=== PATIENT | female | born 1975 | race Caucasian/White ===

== ENCOUNTER 2017-03-03 14:09 | Emergency (ER) ==
[2017-03-03 14:14] VITALS: BP 113/80; TEMP 98; BMI 41.5
[2017-03-03] MEDS ORDERED: MORPHINE 4 MG/ML SYRINGE IVP STA ×2 (14:59→16:33)
[2017-03-03] MEDS ORDERED: SODIUM CHLORIDE 1,000 ML IV STA (15:00)
[2017-03-03] MEDS ORDERED: ZOFRAN 4 MG/2 ML IVP STA (15:00)
[2017-03-03 15:08] LABS: BASOPHILS # (AUTO) 0.1 K/uL (0-0.2); BASOPHILS % (AUTO) 0.4 % (0.0-3.0); EOSINOPHILS # (AUTO) 0.1 K/ul (0.0-0.7); EOSINOPHILS % (AUTO) 0.7 % (0.0-7.0); HEMATOCRIT 42.4 % (37.0-47.0); HEMOGLOBIN 14.5 g/dl (12.0-16.0); IMMATURE GRANULOCYTE % (AUTO) 0.3 % (0.0-5.0); LYMPHOCYTES # (AUTO) 2.1 K/uL (0.60-3.4); LYMPHOCYTES % (AUTO) 18.5 (10.0-50.0); MEAN CORPUSCULAR HEMOGLOBIN 33.5 pg (27.0-31.0); MEAN CORPUSCULAR HGB CONC 34.2 (31.8-35.4); MEAN CORPUSCULAR VOLUME 97.9 fl (81.0-99.0); MONOCYTES # (AUTO) 0.6 K/uL (0.4-2.0); MONOCYTES % (AUTO) 5.5 (0-10); NEUTROPHILS # (AUTO) 8.5 K/ul (2.0-6.9); NEUTROPHILS % (AUTO) 74.6; PLATELET COUNT 234 10^3/uL (140-440); RED BLOOD COUNT 4.33 10^6/ul (4.20-5.40); WHITE BLOOD COUNT 11.43 K/ul (4.6-10.2)
[2017-03-03 15:24] LABS: ALBUMIN 4.4 g/dL (3.4-5.0); ALBUMIN/GLOBULIN RATIO 0.94; ANION GAP 16.1; BILIRUBIN,TOTAL 0.47 mg/dL (0.00-1.20); BUN/CREATININE RATIO 8.88; CALCIUM 10.1 mg/dL (8.2-10.2); CREATININE 1.35 mg/dL (0.60-1.30); POTASSIUM 4.1 mmol/L (3.5-5.10); TOTAL PROTEIN 9.1 g/dL (6.4-8.2)
--- NOTE | 2017-03-03 15:36 | CT ---
EXAM: CT Abdomen without contrast. CT Pelvis without contrast. HISTORY: Nausea, vomiting, diarrhea. Abdominal pain. COMPARISON: 03/31/2015. TECHNIQUE: Multiple axial images of the abdomen and pelvis were obtained without intravenous contra st. Images were reformatted in the coronal plane. FINDINGS: Please note that evaluation of the abdominal and pelvic structures is limited due to lack of intravenous contrast. Mild subsegmental atelectasis seen in the lung bases. No acute osseous abnormality identified. Gallbladder is absent. Mild pneumobilia noted. The liver, pancreas, spleen, adrenal glands, and ki dneys demonstrate normal contour. No calcified renal stones or hydronephrosis detected. There is mild fluid distension of some small bowel loops. No fran bowel wall thickening or transit ion point identified. There is mild mesenteric edema and a small amount of free pelvic fluid. [place] n is normal in caliber. Appendix not seen. Uterus is absent. Urinary bladder is unremarkable. In ferior vena cava filter noted. IMPRESSION: Enteritis.
[2017-03-03 16:11] LABS: FLU INTERNAL QC INTERNAL QC VALID; RAPID FLU A NEGATIVE (NEGATIVE); RAPID FLU B NEGATIVE (NEGATIVE)
[2017-03-03] MEDS ORDERED: LOMOTIL PO STA (16:27)
--- NOTE | 2017-03-03 16:29 | ED.PDOC ---
General ED Provider: Dr. LESA GUAJARDO Chief Complaint: Nausea/Vomiting Stated Complaint: n/v/d Time Seen by Physician: 14:15 (seen with staff ) Mode of Arrival: Walk-In Information Source: Patient Exam Limitations: No limitations Primary Care Provider: JAMSHID MEHTA Nursing and Triage Documentation Reviewed and Agree: Yes GI Complaint Exam - Abdominal Pain Complaint/Exam Onset: Gradual Symptoms Are: Resolved Timing: Intermittent Initial Severity: Moderate Current Severity: Moderate Location of Pain: Diffuse Character: Reports: Cramping Aggravating: Reports: None Alleviating: Reports: None Associated Signs and Symptoms: Reports: Nausea, Vomiting. Denies: Diaphoresis, Fever, Cough, Chest pain, Dizziness, Back pain, Constipation, Blood in stool, Dysuria, Urinary frequency, Decreased urine output, Decreased appetite, Vaginal bleeding, Vaginal discharge, Sore throat, Decreased activity AAA Risk Factors: Reports: None Cardiac Risk Factors: Reports: None Ectopic Risk Factors: Reports: None Ovarian Torsion Risk Factors: Reports: None Related Surgical History: Reports: None Patient Rh Status: Unknown Abdominal Findings: Present: None Review of Systems - Review Of Systems Constitutional: Reports: No symptoms Eyes: Reports: No symptoms Ears, Nose, Mouth, Throat: Reports: No symptoms Respiratory: Reports: No symptoms Cardiac: Reports: No symptoms GI: Reports: Diarrhea, Vomiting : Reports: No symptoms Musculoskeletal: Reports: No symptoms Skin: Reports: No symptoms Neurological: Reports: No symptoms Endocrine: Reports: No symptoms Hematologic/Lymphatic: Reports: No symptoms All Other Systems: Reviewed and Negative Past Medical History - Past Medical History Previously Healthy: Yes Endocrine: Reports: None Cardiovascular: Reports: None Respiratory: Reports: None Hematological: Reports: Anemia Gastrointestinal: Reports: GERD Genitourinary: Reports: None Neuro/Psych: Reports: Anxiety, Depression, Bipolar Disorder Musculoskeletal: Reports: None Cancer: Reports: None Last Menstrual Period: n/a Other Pertinent Past Medical History: chronic Pancreatitis, - Surgical History General Surgical History: Reports: Hysterectomy, Cholecystectomy, Tonsillectomy - Family History Family History: Reports: None - Social History Smoking Status: Current every day smoker, Heavy tobacco smoker Hx Substance Use: No Alcohol Screening: None Physical Exam - Physical Exam Appearance: Well-appearing, No pain distress, Well-nourished Eyes: LEANNE, EOMI, Conjunctiva clear ENT: Ears normal, Nose normal, Oropharynx normal Respiratory: Airway patent, Breath sounds clear, Breath sounds equal, Respirations nonlabored Cardiovascular: RRR, Pulses normal, No rub, No murmur GI/: Soft, Nontender, No masses, Bowel sounds normal, No Organomegaly Musculoskeletal: Normal strength, ROM intact, No edema, No calf tenderness Skin: Warm, Dry, Normal color Neurological: Sensation intact, Motor intact, Reflexes intact, Cranial nerves intact, Alert, Oriented Psychiatric: Affect appropriate, Mood appropriate Interpretation - Radiology Interpretation Radiology Interpretation By: Radiologist Radiology Results: Positive (enteritis) Critical Care Note - Critical Care Note Total Time (mins): 0 Course - Course Hematology/Chemistry: 03/03/17 15:00 03/03/17 15:00 Orders, Labs, Meds: Lab Review 03/03/17 03/03/17 15:00 15:30 WBC 11.43 H RBC 4.33 Hgb 14.5 Hct 42.4 MCV 97.9 MCH 33.5 H MCHC 34.2 RDW Coeff of [place]y 15.0 H Plt Count 234 Immature Gran % (Auto) 0.3 Neut % (Auto) 74.6 Lymph % (Auto) 18.5 [place] % (Auto) 5.5 Eos % (Auto) 0.7 Baso % (Auto) 0.4 Immature Gran # (Auto) 0.0 Neut # 8.5 H Lymph # 2.1 [place] # 0.6 Eos # 0.1 Baso # 0.1 Sodium 140 Potassium 4.1 Chloride 105 Carbon Dioxide 23 Anion Gap 16.1 BUN 12 Creatinine 1.35 H Estimated GFR (MDRD) 44.00 BUN/Creatinine Ratio 8.88 Glucose 91 Calcium 10.1 Total Bilirubin 0.47 AST 37 ALT 33 Alkaline Phosphatase 81 Total Protein 9.1 H Albumin 4.4 Globulin 4.7 Albumin/Globulin Ratio 0.94 Amylase 42 Lipase 23 Influenza A (Rapid) Negative Influenza B (Rapid) Negative Orders Category Date Time Status AMYLASE Stat LAB 03/03/17 15:00 Completed CBC W/ AUTO DIFF Stat LAB 03/03/17 15:00 Completed COMPREHENSIVE METABOLIC PANEL Stat LAB 03/03/17 15:00 Completed LIPASE Stat LAB 03/03/17 15:00 Completed RAPID FLU A/B Stat LAB 03/03/17 15:30 Completed Morphine Sulfate [Morphine 4 mg/ml Syringe] MEDS 03/03/17 14:59 Discontinued 2 mg IVP ONCE STA Ondansetron HCl/Pf [Zofran 4 mg/2 ml] MEDS 03/03/17 15:00 Discontinued 4 mg IVP ONCE STA Sodium Chloride 0.9% [Sodium Chloride] 1,000 ml MEDS 03/03/17 15:[address] ABDOMEN/PELVIS WO CONTRAST Stat RADS 03/03/17 15:00 Completed Medications Discontinued Medications Generic Name Dose Route Start Last Admin Trade Name Freq PRN Reason Stop Dose Admin Sodium Chloride 1,000 mls @ 1,000 mls/hr 03/03/17 15:00 03/03/17 15:22 Sodium Chloride IV 03/03/17 15:59 1,000 mls/hr BOLUS STA Administration Morphine Sulfate 2 mg 03/03/17 14:59 03/03/17 15:24 Morphine 4 Mg/Ml Syringe IVP 03/03/17 15:00 2 mg ONCE STA Administration Ondansetron HCl 4 mg 03/03/17 15:00 03/03/17 15:22 Zofran 4 Mg/2 Ml IVP 03/03/17 15:01 4 mg ONCE STA Administration Vital Signs: Temp Pulse Resp BP Pulse Ox 03/03/17 14:10 98.0 F 100 H 16 113/80 95 Departure - Departure Time of Disposition: 16:30 Disposition: HOME SELF-CARE Discharge Problem: Nausea, Vomiting, Acute gastroenteritis Instructions: Gastroenteritis (ED) Condition: Good Pt referred to PMD for follow-up: No Additional Instructions: Please call your Family Physician as soon as possible to schedule a follow-up appointment. Allergies/Adverse Reactions: Allergies No Known Allergies Allergy (Verified 03/03/17 14:14) Home Medications: Ambulatory Orders Gabapentin [Neurontin] 800 mg PO TID 10/19/14 Omeprazole [Prilosec] 20 mg PO QDAC 10/19/14 Pravastatin Sodium [Pravachol] 20 mg PO BEDTIME 10/19/14 Venlafaxine HCl [Effexor Xr] 150 mg PO BEDTIME 04/17/15 Levothyroxine Sodium [Synthroid] 125 mcg PO DAILY 11/25/15 Hydrocodone/Acetaminophen [Lortab 5-325 mg Tablet] 1 each PO TID PRN 03/03/17
== END 2017-03-03 17:30 | disposition home or self-care (01) ==
LOC: ED 14:09
DX: K52.9 Noninfective gastroenteritis and colitis, unspecified (principal); F17.210 Nicotine dependence, cigarettes, uncomplicated
CPT/HCPCS: 36415; 80053; 82150; 83690; 85025; 87804; 96374; 96375; 96376; 99283

== ENCOUNTER 2017-03-14 19:17 | Emergency (ER) ==
[2017-03-14 19:17] VITALS: BMI 41.5
[2017-03-14 19:22] VITALS: BP 136/85; TEMP 97.6
--- NOTE | 2017-03-14 19:41 | ED.PDOC ---
General ED Provider: Dr. NICOLE YANG-ER Chief Complaint: Extremity Pain/Injury Stated Complaint: i fell onto door way--i have bruise on my arm Time Seen by Physician: 19:20 Mode of Arrival: Walk-In Information Source: Patient Exam Limitations: No limitations Primary Care Provider: JAMSHID MEHTA Nursing and Triage Documentation Reviewed and Agree: Yes Musculoskeletal Complaint Exam - Hand/Wrist Complaint/Exam Location of Pain: Reports: Right, Wrist Mechanism of Injury: Reports: Trauma Onset/Duration: today Onset of Pain: Reports: Immediate Initial Severity: Mild Current Severity: Moderate Location: Reports: Discrete (right forearm) Character: Reports: Dull, Aching Alleviating: Reports: Rest Aggravating: Reports: Movement Associated Signs and Symptoms: Reports: Swelling, Bruising. Denies: Redness, Fever, Weakness, Numbness, Tingling Dominant Hand: Right Hand/Wrist Findings: Present: Swelling, Ecchymosis Tenderness: Present: Radius, Ulna Compartment Syndrome Risk Factors: Present: Pain. Absent: Paralysis, Pallor, Pulselessness, Paresthesias Differential Diagnoses: Closed Fracture, Bursitis, Tenosynovitis Review of Systems - Review Of Systems Constitutional: Reports: No symptoms Eyes: Reports: No symptoms Ears, Nose, Mouth, Throat: Reports: No symptoms Respiratory: Reports: No symptoms Cardiac: Reports: No symptoms GI: Reports: No symptoms : Reports: No symptoms Musculoskeletal: Reports: Muscle pain Skin: Reports: No symptoms Neurological: Reports: No symptoms Endocrine: Reports: No symptoms Hematologic/Lymphatic: Reports: No symptoms All Other Systems: Reviewed and Negative Past Medical History - Past Medical History Previously Healthy: Yes Endocrine: Reports: None Cardiovascular: Reports: None Respiratory: Reports: None Hematological: Reports: Anemia Gastrointestinal: Reports: GERD Genitourinary: Reports: None Neuro/Psych: Reports: Anxiety, Depression, Bipolar Disorder Musculoskeletal: Reports: None Cancer: Reports: None Last Menstrual Period: NA Other Pertinent Past Medical History: chronic Pancreatitis, - Surgical History General Surgical History: Reports: Hysterectomy, Cholecystectomy, Tonsillectomy - Family History Family History: Reports: None - Social History Smoking Status: Current every day smoker, Heavy tobacco smoker Hx Substance Use: No Alcohol Screening: None Lives: With family - Immunizations Tetanus Shot up to Date: No Physical Exam - Physical Exam Appearance: Well-appearing, No pain distress, Well-nourished Pain Distress: Moderate Eyes: LEANNE, EOMI, Conjunctiva clear ENT: Ears normal, Nose normal, Oropharynx normal Neck: Supple Respiratory: Airway patent, Breath sounds clear, Breath sounds equal, Respirations nonlabored Cardiovascular: RRR, Pulses normal, No rub, No murmur GI/: Soft, Nontender, No masses, Bowel sounds normal, No Organomegaly Musculoskeletal: Limited ROM Skin: Warm, Dry, Normal color Neurological: Sensation intact, Motor intact, Reflexes intact, Cranial nerves intact, Alert, Oriented Psychiatric: Affect appropriate, Mood appropriate Interpretation - Radiology Interpretation Radiology Interpretation By: ED Physician Radiology Results: Negative Critical Care Note - Critical Care Note Total Time (mins): 0 Course - Course Orders, Labs, Meds: Orders Category Date Time Status Ice Pack [ED APPLY ICE AFFECTED AREA] .ONCE EMERGENCY 03/14/17 19:27 Active WRIST, RIGHT 3 VIEWS Stat RADS 03/14/17 19:27 Taken Vital Signs: Temp Pulse Resp BP Pulse Ox 03/14/17 19:18 97.6 F 76 16 136/85 98 Departure - Departure Time of Disposition: 19:44 Disposition: HOME SELF-CARE Discharge Problem: Contusion Qualifiers: Encounter type: initial encounter Contusion area: forearm Laterality: right Qualifier Code: (S50.11XA) Contusion of right forearm, initial encounter Instructions: Contusion in Adults (ED) Condition: Good Pt referred to PMD for follow-up: Yes Additional Instructions: norco 5mg q 4hrs prn [place] #15---ice and elevation--reheck in 72hrs if not better Allergies/Adverse Reactions: Allergies No Known Allergies Allergy (Verified 03/14/17 19:24) Home Medications: Ambulatory Orders Gabapentin [Neurontin] 800 mg PO TID 10/19/14 Omeprazole [Prilosec] 20 mg PO QDAC 10/19/14 Venlafaxine HCl [Effexor Xr] 150 mg PO BEDTIME 04/17/15 Levothyroxine Sodium [Synthroid] 125 mcg PO DAILY 11/25/15 Hydrocodone/Acetaminophen [Lortab 5-325 mg Tablet] 1 each PO TID PRN 03/03/17 Disposition Discussed With: Patient
--- NOTE | 2017-03-15 07:19 | DI ---
EXAM: Right wrist three views HISTORY: Injury of the wrist. FINDINGS: Bone and joint structures appear normal. There is no displaced fracture or joint dislocat ion seen. General bone density and soft tissues are within normal limits. IMPRESSION: Findings within normal limits.
== END 2017-03-14 19:48 | disposition home or self-care (01) ==
LOC: ED 19:17
DX: S50.11XA Contusion of right forearm, initial encounter (principal); W19.XXXA Unspecified fall, initial encounter; F17.210 Nicotine dependence, cigarettes, uncomplicated
CPT/HCPCS: 99282

== ENCOUNTER 2017-04-13 22:06 | Emergency (ER) ==
[2017-04-13 22:11] VITALS: BP 116/80; TEMP 98.6; BMI 39.9
--- NOTE | 2017-04-13 23:16 | ED.PDOC ---
General ED Provider: Dr. TIFFANI MAHER Chief Complaint: Extremity Swelling/Pain Stated Complaint: c/o left pain, and knot, she has h/o dvt, she wnats to get checked. nmo leg edema, just started now, Time Seen by Physician: 23:14 Mode of Arrival: Walk-In Information Source: Patient Primary Care Provider: JAMSHID MEHTA Nursing and Triage Documentation Reviewed and Agree: Yes Musculoskeletal Complaint Exam - Lower Extremity Complaint/Exam Location of Pain: Reports: Left, Leg Mechanism of Injury: Reports: No known trauma Symptoms Are: Still present Onset of Pain: Reports: Immediate Initial Severity: Moderate Current Severity: Moderate Location: Reports: Discrete Character: Reports: Aching Alleviating: Reports: Rest Aggravating: Reports: None Able to Bear Weight: Yes Associated Signs and Symptoms: Denies: Swelling, Redness, Bruising, Fever, Weakness, Numbness, Tingling Related History: Reports: Similar episode DVT Risk Factors: Reports: Prior DVT Septic Arthritis Risk Factors: Reports: None Related Surgical History: Reports: None Lower Extremity Findings: Absent: Swelling, Ecchymosis, Abnormal contour NV Bundle Intact Distal to Injury: No Differential Diagnoses: DVT, Strain Review of Systems - Review Of Systems Constitutional: Reports: No symptoms Eyes: Reports: No symptoms Ears, Nose, Mouth, Throat: Reports: No symptoms Respiratory: Reports: No symptoms Cardiac: Reports: No symptoms GI: Reports: No symptoms : Reports: No symptoms Musculoskeletal: Reports: Muscle pain, Muscle stiffness Skin: Reports: No symptoms Neurological: Reports: No symptoms Endocrine: Reports: No symptoms Hematologic/Lymphatic: Reports: No symptoms All Other Systems: Reviewed and Negative Past Medical History - Past Medical History Previously Healthy: Yes Endocrine: Reports: None Cardiovascular: Reports: None Respiratory: Reports: None Hematological: Reports: Anemia Gastrointestinal: Reports: GERD Genitourinary: Reports: None Neuro/Psych: Reports: Anxiety, Depression, Bipolar Disorder Musculoskeletal: Reports: None Cancer: Reports: None Last Menstrual Period: HYSTERECTOMY Other Pertinent Past Medical History: chronic Pancreatitis, - Surgical History General Surgical History: Reports: Hysterectomy, Cholecystectomy, Tonsillectomy - Family History Family History: Reports: None - Social History Smoking Status: Current every day smoker, Heavy tobacco smoker Smoking Cessation Counseling Time: > 3 min - 10 min Hx Substance Use: No Alcohol Screening: None Physical Exam - Physical Exam Appearance: Well-appearing, No pain distress, Well-nourished Eyes: LEANNE, EOMI, Conjunctiva clear ENT: Ears normal, Nose normal, Oropharynx normal Respiratory: Airway patent, Breath sounds clear, Breath sounds equal, Respirations nonlabored Cardiovascular: RRR, Pulses normal, No rub, No murmur GI/: Soft, Nontender, No masses, Bowel sounds normal, No Organomegaly Musculoskeletal: Normal strength, ROM intact, No edema, No calf tenderness Skin: Warm, Dry, Normal color Neurological: Sensation intact, Motor intact, Reflexes intact, Cranial nerves intact, Alert, Oriented Psychiatric: Affect appropriate, Mood appropriate Critical Care Note - Critical Care Note Total Time (mins): 0 Course - Course Hematology/Chemistry: 04/13/17 23:23 04/13/17 23:23 Orders, Labs, Meds: Lab Review 04/13/17 23:23 WBC 10.13 RBC 3.77 L Hgb 12.6 Hct 36.9 L MCV 97.9 MCH 33.4 H MCHC 34.1 RDW Coeff of [place] 14.6 Plt Count 195 Immature Gran % (Auto) 0.4 Neut % (Auto) 50.6 Lymph % (Auto) 40.1 [place] % (Auto) 6.6 Eos % (Auto) 1.5 Baso % (Auto) 0.8 Immature Gran # (Auto) 0.0 Neut # 5.1 Lymph # 4.1 H [place] # 0.7 Eos # 0.2 Baso # 0.1 D-Dimer (Manual) 427.20 Sodium 141 Potassium 3.2 L Chloride 106 Carbon Dioxide 25 Anion Gap 13.2 BUN 15 Creatinine 1.10 Estimated GFR (MDRD) 55.00 BUN/Creatinine Ratio 13.63 Glucose 115 H Calcium 9.9 Total Bilirubin 0.17 AST 23 ALT 21 Alkaline Phosphatase 69 Total Protein 7.8 Albumin 3.9 Globulin 3.9 Albumin/Globulin Ratio 1.00 Orders Category Date Time Status CBC W/ AUTO DIFF Stat LAB 04/13/17 23:23 Completed COMPREHENSIVE METABOLIC PANEL Stat LAB 04/13/17 23:23 Completed D-DIMER Stat LAB 04/13/17 23:23 Completed Potassium Chloride [K-Dur] MEDS 04/13/17 23:50 Discontinued 40 meq PO ONCE STA Medications Discontinued Medications Generic Name Dose Route Start Last Admin Trade Name Freq PRN Reason Stop Dose Admin Potassium Chloride 40 meq 04/13/17 23:50 K-Dur PO 04/13/17 23:51 ONCE STA Vital Signs: Temp Pulse Resp BP Pulse Ox 04/13/17 22:07 98.6 F 85 16 116/80 96 Departure - Departure Time of Disposition: 23:57 Disposition: HOME SELF-CARE Discharge Problem: Pain of left lower extremity Instructions: Leg Pain (ED) Condition: Stable Pt referred to PMD for follow-up: Yes Additional Instructions: venous doppler in am keep f/u with PMD Allergies/Adverse Reactions: Allergies No Known Allergies Allergy (Verified 04/13/17 22:10) Home Medications: Ambulatory Orders Gabapentin [Neurontin] 800 mg PO TID 10/19/14 Omeprazole [Prilosec] 20 mg PO QDAC 10/19/14 Venlafaxine HCl [Effexor Xr] 150 mg PO BEDTIME 04/17/15 Levothyroxine Sodium [Synthroid] 125 mcg PO DAILY 11/25/15 Hydrocodone/Acetaminophen [Lortab 5-325 mg Tablet] 1 each PO TID PRN 03/03/17 Disposition Discussed With: Patient, Family
[2017-04-13 23:24] LABS: BASOPHILS # (AUTO) 0.1 K/uL (0-0.2); BASOPHILS % (AUTO) 0.8 % (0.0-3.0); EOSINOPHILS # (AUTO) 0.2 K/ul (0.0-0.7); EOSINOPHILS % (AUTO) 1.5 % (0.0-7.0); HEMATOCRIT 36.9 % (37.0-47.0); HEMOGLOBIN 12.6 g/dl (12.0-16.0); IMMATURE GRANULOCYTE % (AUTO) 0.4 % (0.0-5.0); LYMPHOCYTES # (AUTO) 4.1 K/uL (0.60-3.4); LYMPHOCYTES % (AUTO) 40.1 (10.0-50.0); MEAN CORPUSCULAR HEMOGLOBIN 33.4 pg (27.0-31.0); MEAN CORPUSCULAR HGB CONC 34.1 (31.8-35.4); MEAN CORPUSCULAR VOLUME 97.9 fl (81.0-99.0); MONOCYTES # (AUTO) 0.7 K/uL (0.4-2.0); MONOCYTES % (AUTO) 6.6 (0-10); NEUTROPHILS # (AUTO) 5.1 K/ul (2.0-6.9); NEUTROPHILS % (AUTO) 50.6; PLATELET COUNT 195 10^3/uL (140-440); RED BLOOD COUNT 3.77 10^6/ul (4.20-5.40); WHITE BLOOD COUNT 10.13 K/ul (4.6-10.2)
[2017-04-13 23:44] LABS: ALBUMIN 3.9 g/dL (3.4-5.0); ANION GAP 13.2; BILIRUBIN,TOTAL 0.17 mg/dL (0.00-1.20); BUN/CREATININE RATIO 13.63; CALCIUM 9.9 mg/dL (8.2-10.2); CREATININE 1.1 mg/dL (0.60-1.30); POTASSIUM 3.2 mmol/L (3.5-5.10); TOTAL PROTEIN 7.8 g/dL (6.4-8.2)
[2017-04-13] MEDS ORDERED: K-DUR PO STA (23:50)
== END 2017-04-14 00:01 | disposition home or self-care (01) ==
LOC: ED 22:06
DX: M79.662 Pain in left lower leg (principal); R60.0 Localized edema; Z86.718 Personal history of other venous thrombosis and embolism; M79.1 Myalgia; F17.200 Nicotine dependence, unspecified, uncomplicated
CPT/HCPCS: 36415; 80053; 85025; 85379; 99283

== ENCOUNTER 2017-06-06 16:28 | Outpatient (CLI) | END 2017-06-06 16:29 | disposition home or self-care (01) | LOC: AMBL 16:28 | PROVIDERS: ATTEND Emergency Medicine | DX: S09.90XA Unspecified injury of head, initial encounter (principal); Y04.2XXA Assault by strike against or bumped into by another person, initial encounter ==

== ENCOUNTER 2017-08-21 20:12 | Emergency (ER) ==
[2017-08-21 20:27] VITALS: BP 145/106; TEMP 98.8; BMI 38.2
[2017-08-21] MEDS ORDERED: TORADOL IM STA (20:28)
[2017-08-21] MEDS ORDERED: DILAUDID 2 MG/ML SYRINGE IM STA (20:28)
[2017-08-21] MEDS ORDERED: NORFLEX IM STA (20:28)
--- NOTE | 2017-08-21 20:38 | ED.PDOC ---
General ED Provider: Dr. NICOLE YANG-ER Chief Complaint: Neck Pain Non-Injury Stated Complaint: my neck has been stiff and painful for a month Time Seen by Physician: 20:15 Mode of Arrival: Walk-In Information Source: Patient, Family Exam Limitations: No limitations Nursing and Triage Documentation Reviewed and Agree: Yes Musculoskeletal Complaint Exam - Neck Pain Complaint/Exam Mechanism of Injury: Reports: No known trauma Onset/Duration: 4 weeks Symptoms Are: Still present Timing: Constant Episodes Lasting: Weeks Initial Severity: Mild Current Severity: Moderate Location: Reports: Discrete Character: Reports: Dull, Aching, Stiffness Aggravating: Reports: Position Alleviating: Reports: None Associated Signs and Symptoms: Denies: Swelling, Redness, Bruising, Fever, Nuchal rigidity, Weakness, Headache, Paresthesia Related History: Reports: Previous neck injury Carotid Bruit Present: No Pain on Passive Flexion: Yes Positive Kernig's Sign: Yes ROM Limited In: Present: Flexion, Extension, Right, Side bending, Rotation Pain Located at: posterior neck Tenderness: Present: Midline Focal Weakness: Present: None Focal Sensory Loss: Reports: None Differential Diagnoses: Dystonia, Sprain, Strain, Torticollis Review of Systems - Review Of Systems Constitutional: Reports: No symptoms Eyes: Reports: No symptoms Ears, Nose, Mouth, Throat: Reports: No symptoms Respiratory: Reports: No symptoms Cardiac: Reports: No symptoms GI: Reports: No symptoms : Reports: No symptoms Musculoskeletal: Reports: Muscle pain, Neck pain Skin: Reports: No symptoms Neurological: Reports: No symptoms Endocrine: Reports: No symptoms Hematologic/Lymphatic: Reports: No symptoms All Other Systems: Reviewed and Negative Past Medical History - Past Medical History Previously Healthy: Yes Endocrine: Reports: None Cardiovascular: Reports: None Respiratory: Reports: None Hematological: Reports: Anemia Gastrointestinal: Reports: GERD Genitourinary: Reports: None Neuro/Psych: Reports: Anxiety, Depression, Bipolar Disorder Musculoskeletal: Reports: None Cancer: Reports: None Last Menstrual Period: PT HAS HAD A HYSTERECTOMY Other Pertinent Past Medical History: chronic Pancreatitis, - Surgical History General Surgical History: Reports: Hysterectomy, Cholecystectomy, Tonsillectomy - Family History Family History: Reports: None - Social History Smoking Status: Current every day smoker, Heavy tobacco smoker Hx Substance Use: No Alcohol Screening: None - Immunizations Tetanus Shot up to Date: No Physical Exam - Physical Exam Appearance: Well-appearing, No pain distress, Well-nourished Pain Distress: Moderate Eyes: LEANNE, EOMI, Conjunctiva clear ENT: Ears normal, Nose normal, Oropharynx normal Neck: Supple Respiratory: Airway patent Cardiovascular: RRR, Pulses normal, No rub, No murmur GI/: Soft, Nontender, No masses, Bowel sounds normal, No Organomegaly Musculoskeletal: Limited ROM Skin: Warm Neurological: Sensation intact Psychiatric: Affect appropriate, Mood appropriate Interpretation - Radiology Interpretation Radiology Interpretation By: Radiologist Radiology Results: Positive Exam Interpreted: CT Scan Re-Evaluation - Re-Evaluation Time of Re-Evaluation: 21:17 Status: Improved Vital Signs Stable: Yes Pain Level: 1 Appearance: NAD Lungs: Clear Skin: Warm and Dry Neuro: Alert and Oriented X3 CV: RRR Critical Care Note - Critical Care Note Total Time (mins): 0 Course - Course Orders, Labs, Meds: Orders Category Date Time Status Hydromorphone HCl/Pf [Dilaudid 2 mg/ml Syringe] MEDS 08/21/17 20:28 Discontinued 2 mg IM ONCE STA Ketorolac Tromethamine [Toradol] MEDS 08/21/17 20:28 Discontinued 60 mg IM ONCE STA Orphenadrine Citrate [Norflex] MEDS 08/21/17 20:28 Discontinued 60 mg IM ONCE STA CT CERVICAL SPINE W/O CONTRAST Stat RADS 08/21/17 20:28 Completed Medications Discontinued Medications Generic Name Dose Route Start Last Admin Trade Name Freq PRN Reason Stop Dose Admin Hydromorphone HCl 2 mg 08/21/17 20:28 08/21/17 20:40 Dilaudid 2 Mg/Ml Syringe IM 08/21/17 20:29 2 mg ONCE STA Administration Ketorolac Tromethamine 60 mg 08/21/17 20:28 08/21/17 20:38 Toradol IM 08/21/17 20:29 60 mg ONCE STA Administration Orphenadrine Citrate 60 mg 08/21/17 20:28 08/21/17 20:36 Norflex IM 08/21/17 20:29 60 mg ONCE STA Administration Vital Signs: Temp Pulse Resp BP Pulse Ox 08/21/17 20:13 98.8 F 84 20 145/106 H 96 Departure - Departure Time of Disposition: 21:17 Disposition: HOME SELF-CARE Discharge Problem: Muscle spasm DDD (degenerative disc disease) Qualifiers: Spinal region: unspecified cervical region Qualified Code(s): M50.30 - Other cervical disc degeneration, unspecified cervical region Instructions: Muscle Spasm (ED) Condition: Good Pt referred to PMD for follow-up: Yes Additional Instructions: norco 5mg q 4hrs prn pain #10---flexeril 10mg tid #21--heat--f/u with pcp Allergies/Adverse Reactions: Allergies No Known Allergies Allergy (Verified 08/21/17 20:25) Home Medications: Ambulatory Orders Gabapentin [Neurontin] 800 mg PO TID 10/19/14 Omeprazole [Prilosec] 20 mg PO QDAC 10/19/14 Venlafaxine HCl [Effexor Xr] 150 mg PO BEDTIME 04/17/15 Levothyroxine Sodium [Synthroid] 125 mcg PO DAILY 11/25/15 Disposition Discussed With: Patient, Family
--- NOTE | 2017-08-21 21:12 | CT ---
EXAM: CT scan cervical spine HISTORY: Pain and stiffness no trauma COMPARISON: MRI cervical spine 08/04/2016 FINDINGS: Contiguous axial images obtained through the cervical spine utilizing 2-mm collimation. S agittal and coronal reconstructions were imaged and reviewed. There is mild loss of the normal cervic al lordosis suggesting paraspinal muscle spasm. Vertebral bodies are normal in height and alignment. Degenerate disc disease is noted at C5-C6 and C6-C7. Facet joints are intact. At C3-C4 there is m ild right neural foraminal narrowing secondary to uncinate hypertrophy. C4-C5 there is mild spondylit ic bulge. There is narrowing of the right neural foramen secondary to facet and uncinate hypertrophy .. At C5-C6 spondylitic bulge narrows the AP dimension of the central canal. There is bilateral natalia ral foraminal narrowing right greater than left secondary to uncovertebral degenerative changes. At C6-C7 there is mild spondylitic bulge narrowing the AP dimension of the central canal.. The neural f oramen are patent.. IMPRESSION: Degenerate disc disease most prominent C5-C6 and C6-C7. Central canal and foraminal stenosis as described.
== END 2017-08-21 21:29 | disposition home or self-care (01) ==
LOC: ED 20:12
DX: M50.30 Other cervical disc degeneration, unspecified cervical region (principal); M62.838 Other muscle spasm; F17.210 Nicotine dependence, cigarettes, uncomplicated
CPT/HCPCS: 96372; 99282

== ENCOUNTER 2017-10-03 17:07 | Emergency (ER) ==
[2017-10-03 17:10] VITALS: BP 135/87; TEMP 98.4; BMI 38.2
--- NOTE | 2017-10-03 17:47 | ED.PDOC ---
General ED Provider: Dr. TITO SIMS Chief Complaint: Tooth Problem Stated Complaint: Upper Left tooth broken; painful Time Seen by Physician: 17:44 Mode of Arrival: Walk-In Information Source: Patient Nursing and Triage Documentation Reviewed and Agree: Yes Review of Systems - Review Of Systems Constitutional: Reports: Malaise Ears, Nose, Mouth, Throat: Reports: Mouth pain (Upper Left tooth broken) All Other Systems: Reviewed and Negative Past Medical History - Past Medical History Previously Healthy: Yes Endocrine: Reports: None Cardiovascular: Reports: None Respiratory: Reports: None Hematological: Reports: Anemia Gastrointestinal: Reports: GERD Genitourinary: Reports: None Neuro/Psych: Reports: Anxiety, Depression, Bipolar Disorder Musculoskeletal: Reports: None Cancer: Reports: None Last Menstrual Period: n/a Other Pertinent Past Medical History: chronic Pancreatitis, - Surgical History General Surgical History: Reports: Hysterectomy, Cholecystectomy, Tonsillectomy - Family History Family History: Reports: None - Social History Smoking Status: Current every day smoker, Heavy tobacco smoker Hx Substance Use: No Alcohol Screening: None Physical Exam - Physical Exam Appearance: Well-appearing Pain Distress: Moderate Eyes: LEANNE, Conjunctiva clear ENT: Oropharynx normal (Indicates upper 1st molar broken down) Neck: Supple Respiratory: Airway patent Psychiatric: Affect appropriate, Mood appropriate Critical Care Note - Critical Care Note Total Time (mins): 8 Course - Course Vital Signs: Temp Pulse Resp BP Pulse Ox 10/03/17 17:08 98.4 F 86 20 135/87 98 Departure - Departure Time of Disposition: 17:49 Disposition: HOME SELF-CARE Discharge Problem: Dental abscess Instructions: Dental Abscess (ED) Condition: Good Pt referred to PMD for follow-up: Yes (Must follow up with dentist) Additional Instructions: Take antibiotic as prescribed; use pain medications as prescribed. Must followup with dentist for definitive care. Prescriptions: Hydrocodone Bit/Acetaminophen [[place] 7.5-325] 1 tab PO Q6HR PRN #12 tablet PRN Reason: pain Penicillin V Potassium 500 mg PO RTTID #21 tablet Allergies/Adverse Reactions: Allergies No Known Allergies Allergy (Verified 10/03/17 17:10) Home Medications: Ambulatory Orders Gabapentin [Neurontin] 800 mg PO TID 10/19/14 Omeprazole [Prilosec] 20 mg PO QDAC 10/19/14 Venlafaxine HCl [Effexor Xr] 150 mg PO BEDTIME 04/17/15 Levothyroxine Sodium [Synthroid] 125 mcg PO DAILY 11/25/15 Hydrocodone Bit/Acetaminophen [[place] 7.5-325] 1 tab PO Q6HR PRN #12 tablet 10/03 Penicillin V Potassium 500 mg PO RTTID #21 tablet 10/03/17
== END 2017-10-03 17:58 | disposition home or self-care (01) ==
LOC: ED 17:07
DX: K04.7 Periapical abscess without sinus (principal); S02.5XXA Fracture of tooth (traumatic), initial encounter for closed fracture; F17.210 Nicotine dependence, cigarettes, uncomplicated
CPT/HCPCS: 99282

== ENCOUNTER 2018-03-31 09:01 | Emergency (ER) | payer OTHER ==
[2018-03-31 09:09] VITALS: BP 137/93; TEMP 97.8; BMI 34.6
[2018-03-31] MEDS ORDERED: DECADRON 4 MG/ML SDV IM STA (09:22)
[2018-03-31] MEDS ORDERED: VALIUM SYRINGE IM STA (09:22)
[2018-03-31] MEDS ORDERED: TORADOL IM STA (09:22)
[2018-03-31] MEDS ORDERED: VALIUM PO STA (09:33)
--- NOTE | 2018-03-31 09:45 | ED.PDOC ---
General ED Provider: Dr. LESA GUAJARDO Chief Complaint: Neck Pain Non-Injury Stated Complaint: NECK PAIN Time Seen by Physician: 09:12 Mode of Arrival: Walk-In Information Source: Patient Exam Limitations: No limitations Primary Care Provider: SARA SPAULDING Nursing and Triage Documentation Reviewed and Agree: Yes Reviewed sepsis parameters & appropriate labs ordered?: Yes (CHRONIC NECK PAIN MRI AND CSPINE POSTIVE FOR STENOSIS AT C/SPINE ) System Inflammatory Response Syndrome: Not Applicable Sepsis Protocol: For patient's 13 years and over: Temp is 96.8 and below OR 101 and greater Pulse >90 BPM Resp >20/minute Acutely Altered Mental Status Are patient's symptoms suggestive of a new infection, such as: -Pneumonia -Skin, Soft Tissue -Endocarditis -UTI -Bone, Joint Infection -Implantable Device -Acute Abdominal Infection -Wound Infection -Meningitis -Blood Stream Catheter Infection -Unknown System Inflammatory Response Syndrome: Not Applicable Musculoskeletal Complaint Exam - Neck Pain Complaint/Exam Mechanism of Injury: Reports: No known trauma, Other (CHRONIC ISSUE ) Onset/Duration: CHRONIC PAIN ISSUE FOR MONTHS Symptoms Are: Still present Timing: Constant Episodes Lasting: Weeks Initial Severity: Moderate Current Severity: Moderate Location: Reports: Discrete Character: Reports: Aching, Stiffness Alleviating: Reports: None Associated Signs and Symptoms: Denies: Swelling, Redness, Bruising, Fever, Nuchal rigidity, Weakness, Headache, Paresthesia Related History: Reports: Similar episode Meningitis Risk Factors: Reports: None Cervical Spine Injury Risk Factors: Reports: None Related Surgical History: Reports: None Carotid Bruit Present: No Pain on Passive Flexion: No Positive Kernig's Sign: No Focal Weakness: Present: None Focal Sensory Loss: Reports: None Nexus Low Risk Criteria: No post-midline CS tender, No evidence of intoxicat., No Altered LOC, No focal neuro deficit, No distracting injuries Differential Diagnoses: Sprain, Strain Review of Systems - Review Of Systems Constitutional: Reports: No symptoms Eyes: Reports: No symptoms Ears, Nose, Mouth, Throat: Reports: No symptoms Respiratory: Reports: No symptoms Cardiac: Reports: No symptoms GI: Reports: No symptoms : Reports: No symptoms Musculoskeletal: Reports: Neck pain Skin: Reports: No symptoms Neurological: Reports: No symptoms Endocrine: Reports: No symptoms Hematologic/Lymphatic: Reports: No symptoms All Other Systems: Reviewed and Negative Past Medical History - Past Medical History Previously Healthy: Yes Endocrine: Reports: None Cardiovascular: Reports: None Respiratory: Reports: None Hematological: Reports: Anemia Gastrointestinal: Reports: GERD Genitourinary: Reports: None Neuro/Psych: Reports: Anxiety, Depression, Bipolar Disorder Musculoskeletal: Reports: None Cancer: Reports: None Last Menstrual Period: hysterectomy Other Pertinent Past Medical History: chronic Pancreatitis, - Surgical History General Surgical History: Reports: Hysterectomy, Cholecystectomy, Tonsillectomy - Family History Family History: Reports: None - Social History Smoking Status: Current every day smoker, Heavy tobacco smoker Hx Substance Use: No Alcohol Screening: None Physical Exam - Physical Exam Appearance: Well-appearing, No pain distress, Well-nourished Eyes: LEANNE, EOMI, Conjunctiva clear ENT: Ears normal, Nose normal, Oropharynx normal Respiratory: Airway patent, Breath sounds clear, Breath sounds equal, Respirations nonlabored Cardiovascular: RRR, Pulses normal, No rub, No murmur GI/: Soft, Nontender, No masses, Bowel sounds normal, No Organomegaly Musculoskeletal: Normal strength, ROM intact, No edema, No calf tenderness Skin: Warm, Dry, Normal color Neurological: Sensation intact, Motor intact, Reflexes intact, Cranial nerves intact, Alert, Oriented Psychiatric: Affect appropriate, Mood appropriate Interpretation - Radiology Interpretation Radiology Interpretation By: Radiologist Critical Care Note - Critical Care Note Total Time (mins): 0 Course - Course Orders, Labs, Meds: Orders Category Date Time Status Dexamethasone 4 mg/ml Inj [Decadron 4 mg/ml Sdv] MEDS 03/31/18 09:22 Discontinued 4 mg IM ONCE STA Diazepam [Valium] MEDS 03/31/18 09:33 Discontinued 5 mg PO ONCE STA Ketorolac Tromethamine [Toradol] MEDS 03/31/18 09:22 Discontinued 60 mg IM ONCE STA CT CERVICAL SPINE W/O CONTRAST Stat RADS 03/31/18 09:23 Ordered Medications Discontinued Medications Generic Name Dose Route Start Last Admin Trade Name Freq PRN Reason Stop Dose Admin Dexamethasone Sodium Phosphate 4 mg 03/31/18 09:22 Decadron 4 Mg/Ml Sdv IM 03/31/18 09:23 ONCE STA Diazepam 5 mg 03/31/18 09:33 Valium PO 03/31/18 09:34 ONCE STA Ketorolac Tromethamine 60 mg 03/31/18 09:22 Toradol IM 03/31/18 09:23 ONCE STA Vital Signs: Temp Pulse Resp BP Pulse Ox 03/31/18 09:03 97.8 F 87 20 137/93 H 98 Departure - Departure Time of Disposition: 11:00 Disposition: HOME SELF-CARE Discharge Problem: Neck pain, Cervical stenosis of spinal canal Instructions: Cervical Sprain (ED), Neck Pain (ED) Condition: Good Pt referred to PMD for follow-up: Yes IPMP verified?: No Additional Instructions: Please call your Family Physician as soon as possible to schedule a follow-up appointment.your spinal canal is becoming narrow. the spinal corld lives in this region and i often trapped net result is arm pain and numbness. please have your md send you to a spine surgeon. Allergies/Adverse Reactions: Allergies No Known Allergies Allergy (Verified 03/31/18 09:11) Home Medications: Ambulatory Orders Omeprazole [Prilosec] 20 mg PO QDAC 10/19/14 Venlafaxine HCl [Effexor Xr] 150 mg PO BEDTIME 04/17/15 Levothyroxine Sodium [Synthroid] 125 mcg PO DAILY 11/25/15 Disposition Discussed With: Patient
--- NOTE | 2018-03-31 10:38 | CT ---
EXAM: CT cervical spine without contrast. HISTORY: Chronic neck pain COMPARISON: CT cervical spine 08/21/2017 TECHNIQUE: Serial axial images of the cervical spine were obtained from the skull base through the l jayne apices without contrast. These were viewed in multiple planes. FINDINGS: Vertebral bodies demonstrate normal height, disc space and alignment. There is straighten ing of the cervical spine. There is minimal posterior disc osteophytes. There is no lytic or blasti c lesion. The odontoid process is unremarkable. C1 ring is intact. There is no central or neural fo raminal narrowing. Limited views of the soft tissues are unremarkable. IMPRESSION: 1. No acute compression fracture or subluxation of the cervical spine. 2. Straightening of the cervical spine and mild multilevel degenerative disease.
== END 2018-03-31 11:05 | disposition home or self-care (01) ==
LOC: ED 09:01
DX: M54.2 Cervicalgia (principal); M48.02 Spinal stenosis, cervical region; F17.210 Nicotine dependence, cigarettes, uncomplicated
CPT/HCPCS: 96372; 99283

== ENCOUNTER 2018-05-28 18:33 | Emergency (ER) ==
--- NOTE | 2018-05-28 18:38 | ED.PDOC ---
General ED Provider: Dr. NICOLE YANG-ER Chief Complaint: Tooth Problem Stated Complaint: my tooth hurts Time Seen by Physician: 18:36 Mode of Arrival: Walk-In Information Source: Patient Exam Limitations: No limitations Primary Care Provider: SARA SPAULDING Nursing and Triage Documentation Reviewed and Agree: Yes Does patient meet sepsis criteria?: No System Inflammatory Response Syndrome: Not Applicable Sepsis Protocol: For patient's 13 years and over: Temp is 96.8 and below OR 101 and greater Pulse >90 BPM Resp >20/minute Acutely Altered Mental Status Are patient's symptoms suggestive of a new infection, such as: -Pneumonia -Skin, Soft Tissue -Endocarditis -UTI -Bone, Joint Infection -Implantable Device -Acute Abdominal Infection -Wound Infection -Meningitis -Blood Stream Catheter Infection -Unknown EENT Complaint Exam - Dental/Oral Complaint/Exam Mechanism of Injury: No known trauma Onset/Duration: 2 days Symptoms Are: Still present Timing: Constant Initial Severity: Mild Current Severity: Moderate Location: right upper molar Character: Reports: Dull, Aching, Throbbing Aggravating: Reports: Heat, Cold, Chewing Alleviating: Reports: None Associated Signs and Symptoms: Reports: Foul taste in mouth Related History: Reports: Similar episode, Previous tooth problem Tooth Findings: Present: Percussion tenderness Cervical Lymphadenopathy Present: No Facial Swelling Present: No Oropharynx Findings: Absent: Clots, Active bleeding Septal Hematoma: No Foreign Body Present: No Dysphagia Present: No Drooling Present: No Asymmetrical Tonsillar Swelling Present: No Uvula Midline: Yes Leena-tonsillar Fluctuence: No Trismus Present: No Palatal Petechiae Present: No Scarlatinaform Rash Present: No Differential Diagnoses: Dental Abcess, Dental Caries Review of Systems - Review Of Systems Constitutional: Reports: No symptoms Eyes: Reports: No symptoms Ears, Nose, Mouth, Throat: Reports: Mouth pain Respiratory: Reports: No symptoms Cardiac: Reports: No symptoms GI: Reports: No symptoms : Reports: No symptoms Musculoskeletal: Reports: No symptoms Skin: Reports: No symptoms Neurological: Reports: No symptoms Endocrine: Reports: No symptoms Hematologic/Lymphatic: Reports: No symptoms All Other Systems: Reviewed and Negative Past Medical History - Past Medical History Previously Healthy: Yes Endocrine: Reports: None Cardiovascular: Reports: None Respiratory: Reports: None Hematological: Reports: Anemia Gastrointestinal: Reports: GERD Genitourinary: Reports: None Neuro/Psych: Reports: Anxiety, Depression, Bipolar Disorder Musculoskeletal: Reports: None Cancer: Reports: None Other Pertinent Past Medical History: chronic Pancreatitis, - Surgical History General Surgical History: Reports: Hysterectomy, Cholecystectomy, Tonsillectomy - Family History Family History: Reports: None - Social History Smoking Status: Current every day smoker, Heavy tobacco smoker Hx Substance Use: No Alcohol Screening: None Physical Exam - Physical Exam Appearance: Well-appearing, No pain distress, Well-nourished Pain Distress: Moderate Eyes: LEANNE ENT: Ears normal, Nose normal, Oropharynx normal (noted right upper molar tender to touch) Neck: Supple Respiratory: Airway patent, Breath sounds clear, Breath sounds equal, Respirations nonlabored Cardiovascular: RRR, Pulses normal, No rub, No murmur GI/: Soft, Nontender, No masses, Bowel sounds normal, No Organomegaly Musculoskeletal: Normal strength, ROM intact, No edema, No calf tenderness Skin: Warm, Dry, Normal color Neurological: Sensation intact, Motor intact, Reflexes intact, Cranial nerves intact, Alert, Oriented Psychiatric: Affect appropriate, Mood appropriate Critical Care Note - Critical Care Note Total Time (mins): 0 Departure - Departure Time of Disposition: 18:38 Disposition: HOME SELF-CARE Discharge Problem: Toothache Instructions: Toothache (ED) Condition: Good Pt referred to PMD for follow-up: Yes IPMP verified?: No Additional Instructions: norco 7.5mg q 4hrs prn pain#10---clindamycin 300mg tid x 7 dasys--f/u with dentist everett Allergies/Adverse Reactions: Allergies No Known Allergies Allergy (Verified 03/31/18 09:11) Home Medications: Ambulatory Orders Omeprazole [Prilosec] 20 mg PO QDAC 10/19/14 Venlafaxine HCl [Effexor Xr] 150 mg PO BEDTIME 04/17/15 Levothyroxine Sodium [Synthroid] 125 mcg PO DAILY 11/25/15 Hydrocodone/Acetaminophen [[place] 10-325 Tablet] 1 each PO Q8HR #14 tablet Disposition Discussed With: Patient
[2018-05-28 18:42] VITALS: BP 113/81; TEMP 97.1; BMI 33.3
== END 2018-05-28 18:44 | disposition home or self-care (01) ==
LOC: ED 18:33
DX: K08.89 Other specified disorders of teeth and supporting structures (principal); F17.210 Nicotine dependence, cigarettes, uncomplicated
CPT/HCPCS: 99282

== ENCOUNTER 2018-07-08 06:53 | Emergency (ER) ==
[2018-07-08 06:58] VITALS: BP 129/92; TEMP 97.8; BMI 32.1
--- NOTE | 2018-07-08 07:09 | ED.PDOC ---
General ED Provider: Dr. LESA GUAJARDO Chief Complaint: Tooth Problem Stated Complaint: dental pain Time Seen by Physician: 07:00 Mode of Arrival: Walk-In Information Source: Patient Exam Limitations: No limitations Primary Care Provider: SARA SPAULDING Nursing and Triage Documentation Reviewed and Agree: Yes Does patient meet sepsis criteria?: No System Inflammatory Response Syndrome: Not Applicable Sepsis Protocol: For patient's 13 years and over: Temp is 96.8 and below OR 101 and greater Pulse >90 BPM Resp >20/minute Acutely Altered Mental Status Are patient's symptoms suggestive of a new infection, such as: -Pneumonia -Skin, Soft Tissue -Endocarditis -UTI -Bone, Joint Infection -Implantable Device -Acute Abdominal Infection -Wound Infection -Meningitis -Blood Stream Catheter Infection -Unknown EENT Complaint Exam - Dental/Oral Complaint/Exam Mechanism of Injury: No known trauma Onset/Duration: 1 day Symptoms Are: Still present Timing: Constant Initial Severity: Moderate Current Severity: Moderate Character: Reports: Aching Aggravating: Reports: Heat, Cold, Chewing Alleviating: Reports: None Associated Signs and Symptoms: Denies: Swelling, Discharge, Fever, Foul odor, Foul taste in mouth Related History: Reports: Similar episode Dental/Oral Surgical History: Reports: None Tooth Findings: Present: Gross caries Cervical Lymphadenopathy Present: No Facial Swelling Present: No Bleeding Present: No Oropharynx Findings: Absent: Clots, Active bleeding Septal Hematoma: No Foreign Body Present: No Dysphagia Present: No Drooling Present: No Asymmetrical Tonsillar Swelling Present: No Uvula Midline: Yes Leena-tonsillar Fluctuence: No Trismus Present: No Palatal Petechiae Present: No Scarlatinaform Rash Present: No Lesions: Absent: Lip, Gums, Tongue, Buccal Mucosa, Pharynx Exanthem: Absent: Lip, Gums, Tongue, Buccal Mucosa, Pharynx Vesicles: Absent: Lip, Gums, Tongue, Buccal Mucosa, Pharynx Teeth Picture: 1 - decay Differential Diagnoses: Dental Caries, Fractured Tooth Review of Systems - Review Of Systems Constitutional: Reports: No symptoms Eyes: Reports: No symptoms Ears, Nose, Mouth, Throat: Reports: No symptoms Respiratory: Reports: No symptoms Cardiac: Reports: No symptoms GI: Reports: No symptoms : Reports: No symptoms Musculoskeletal: Reports: No symptoms Skin: Reports: No symptoms Neurological: Reports: No symptoms Endocrine: Reports: No symptoms Hematologic/Lymphatic: Reports: No symptoms All Other Systems: Reviewed and Negative Past Medical History - Past Medical History Previously Healthy: Yes Endocrine: Reports: None Cardiovascular: Reports: None Respiratory: Reports: None Hematological: Reports: Anemia Gastrointestinal: Reports: GERD Genitourinary: Reports: None Neuro/Psych: Reports: Anxiety, Depression, Bipolar Disorder Musculoskeletal: Reports: None Cancer: Reports: None Last Menstrual Period: n/a Other Pertinent Past Medical History: chronic Pancreatitis, - Surgical History General Surgical History: Reports: Hysterectomy, Cholecystectomy, Tonsillectomy - Family History Family History: Reports: None - Social History Smoking Status: Current every day smoker, Heavy tobacco smoker Hx Substance Use: No Alcohol Screening: None Physical Exam - Physical Exam Appearance: Well-appearing, No pain distress, Well-nourished Eyes: LEANNE, EOMI, Conjunctiva clear ENT: Ears normal, Nose normal, Oropharynx normal Respiratory: Airway patent, Breath sounds clear, Breath sounds equal, Respirations nonlabored Cardiovascular: RRR, Pulses normal, No rub, No murmur GI/: Soft, Nontender, No masses, Bowel sounds normal, No Organomegaly Musculoskeletal: Normal strength, ROM intact, No edema, No calf tenderness Skin: Warm, Dry, Normal color Neurological: Sensation intact, Motor intact, Reflexes intact, Cranial nerves intact, Alert, Oriented Psychiatric: Affect appropriate, Mood appropriate Critical Care Note - Critical Care Note Total Time (mins): 0 Course - Course Vital Signs: Temp Pulse Resp BP Pulse Ox 07/08/18 06:54 97.8 F 84 16 129/92 H 97 Departure - Departure Time of Disposition: 07:12 Disposition: HOME SELF-CARE Discharge Problem: Toothache Instructions: Toothache (ED) Condition: Good Pt referred to PMD for follow-up: Yes IPMP verified?: No Additional Instructions: Please call your Family Physician as soon as possible to schedule a follow-up appointment. Allergies/Adverse Reactions: Allergies No Known Allergies Allergy (Verified 07/08/18 06:58) Home Medications: Ambulatory Orders 1 [No Reported Medications] 07/08/18 Disposition Discussed With: Patient
== END 2018-07-08 07:24 | disposition home or self-care (01) ==
LOC: ED 06:53
DX: K08.89 Other specified disorders of teeth and supporting structures (principal); K02.7 Dental root caries; F17.210 Nicotine dependence, cigarettes, uncomplicated
CPT/HCPCS: 99282

== ENCOUNTER 2018-12-04 12:06 | Emergency (ER) | payer MEDICAID, OTHER ==
[2018-12-04 12:13] VITALS: BP 138/87; TEMP 96.2; BMI 31.2
[2018-12-04] MEDS ORDERED: NORFLEX IM STA (14:23)
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
--- NOTE | 2018-12-04 14:52 | CT ---
EXAM: CT cervical spine. HISTORY: Neck pain. TECHNIQUE: CT cervical spine without contrast. Detailed axial sections. Coronal and sagittal re-fo rmations. COMPARISON: 10/19/2018 FINDINGS: No fracture is identified. Normal vertebral body height. No spondylolisthesis. Facet joints are co beatrice. Lateral masses of C1 and C2 are normally aligned and the odontoid process is intact. Degene rative disc and facet disease is present most apparent at C5/C6 and C6/C7 where there is mild central canal stenosis. Paraspinal soft tissues are within normal limits. IMPRESSION: 1. Early degenerative changes of the [id number] spine. 2. No fracture or subluxation.
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
== END 2018-12-04 15:40 | disposition home or self-care (01) ==
LOC: ED 12:06
DX: R07.89 Other chest pain (principal); M54.6 Pain in thoracic spine; M54.2 Cervicalgia; V49.9XXA Car occupant (driver) (passenger) injured in unspecified traffic accident, initial encounter
CPT/HCPCS: 96372; 99282; 99283

== ENCOUNTER 2019-01-10 21:24 | Emergency (ER) | payer MEDICAID, OTHER ==
--- NOTE | 2019-01-10 21:32 | ED.PDOC ---
General ED Provider: Dr. NICOLE YANG-ER Chief Complaint: Tooth Problem Stated Complaint: my tooth broke Time Seen by Physician: 21:29 Mode of Arrival: Walk-In Information Source: Patient Primary Care Provider: SARA SPAULDING Nursing and Triage Documentation Reviewed and Agree: Yes Does patient meet sepsis criteria?: No System Inflammatory Response Syndrome: Not Applicable Sepsis Protocol: For patient's 13 years and over: Temp is 96.8 and below OR 101 and greater Pulse >90 BPM Resp >20/minute Acutely Altered Mental Status Are patient's symptoms suggestive of a new infection, such as: -Pneumonia -Skin, Soft Tissue -Endocarditis -UTI -Bone, Joint Infection -Implantable Device -Acute Abdominal Infection -Wound Infection -Meningitis -Blood Stream Catheter Infection -Unknown EENT Complaint Exam - Dental/Oral Complaint/Exam Mechanism of Injury: No known trauma Onset/Duration: 2 hrs Symptoms Are: Still present Timing: Constant Initial Severity: Mild Current Severity: Mild Location: right upper premolar Character: Reports: Dull, Aching Associated Signs and Symptoms: Reports: Swelling, Discharge Cardiac Risk Factors: Reports: None Dental/Oral Surgical History: Reports: None Tooth Findings: Present: Gross decay, Gross caries Cervical Lymphadenopathy Present: No Facial Swelling Present: No Bleeding Present: No Septal Hematoma: No Foreign Body Present: No Dysphagia Present: No Drooling Present: No Asymmetrical Tonsillar Swelling Present: No Uvula Midline: Yes Leena-tonsillar Fluctuence: No Trismus Present: No Palatal Petechiae Present: No Scarlatinaform Rash Present: No Review of Systems - Review Of Systems Constitutional: Reports: No symptoms Eyes: Reports: No symptoms Ears, Nose, Mouth, Throat: Reports: Mouth pain Respiratory: Reports: No symptoms Cardiac: Reports: No symptoms GI: Reports: No symptoms : Reports: No symptoms Musculoskeletal: Reports: No symptoms Skin: Reports: No symptoms Neurological: Reports: No symptoms Endocrine: Reports: No symptoms Hematologic/Lymphatic: Reports: No symptoms All Other Systems: Reviewed and Negative Past Medical History - Past Medical History Previously Healthy: Yes Endocrine: Reports: None Cardiovascular: Reports: None Respiratory: Reports: None Hematological: Reports: Anemia Gastrointestinal: Reports: GERD Genitourinary: Reports: None Neuro/Psych: Reports: Anxiety, Depression, Bipolar Disorder Musculoskeletal: Reports: None Cancer: Reports: None Other Pertinent Past Medical History: chronic Pancreatitis, - Surgical History General Surgical History: Reports: Hysterectomy, Cholecystectomy, Tonsillectomy - Family History Family History: Reports: None - Social History Smoking Status: Current every day smoker, Light tobacco smoker Hx Substance Use: No Alcohol Screening: None Physical Exam - Physical Exam Appearance: Well-appearing Pain Distress: Moderate Eyes: LEANNE, EOMI, Conjunctiva clear ENT: Ears normal, Nose normal, Oropharynx normal Neck: Supple Respiratory: Airway patent, Breath sounds clear, Breath sounds equal, Respirations nonlabored Cardiovascular: RRR, Pulses normal, No rub, No murmur GI/: Soft, Nontender, No masses, Bowel sounds normal, No Organomegaly Musculoskeletal: Normal strength Skin: Warm, Dry, Normal color Neurological: Sensation intact, Motor intact, Reflexes intact, Cranial nerves intact, Alert, Oriented Psychiatric: Affect appropriate, Mood appropriate Critical Care Note - Critical Care Note Total Time (mins): 0 Departure - Departure Time of Disposition: 21:30 Disposition: HOME SELF-CARE Discharge Problem: Fractured tooth Qualifiers: Encounter type: initial encounter Fracture type: closed Qualified Code(s): S02.5XXA - Fracture of tooth (traumatic), initial encounter for closed fracture Instructions: Toothache (ED) Condition: Good Pt referred to PMD for follow-up: Yes IPMP verified?: No Additional Instructions: clindamycin 150mg qid x 7 days plus norco 5mg q 6hrs prn pain #12---f/u with dentist everett Allergies/Adverse Reactions: Allergies doxycycline Adverse Reaction (Verified 01/10/19 21:33) Vomiting Home Medications: Ambulatory Orders Cyclobenzaprine HCl [Flexeril] 10 mg PO DAILY PRN #20 tablet 10/19/18 Ergocalciferol (Vitamin D2) [Vitamin D2] 50,000 unit PO WEEKLY 10/19/18 Ibuprofen [Motrin] 600 mg PO Q6H PRN #30 tablet 10/19/18 Levothyroxine Sodium [Synthroid] 150 mcg PO DAILY 10/19/18 Venlafaxine HCl [Effexor Xr] 75 mg PO DAILY 10/19/18 Aripiprazole [Abilify] 5 mg PO DAILY 01/10/19 Disposition Discussed With: Patient
[2019-01-10 21:35] VITALS: BP 144/92; TEMP 97.3; BMI 31.8
== END 2019-01-10 21:57 | disposition home or self-care (01) ==
LOC: ED 21:24
DX: K08.89 Other specified disorders of teeth and supporting structures (principal); S02.5XXA Fracture of tooth (traumatic), initial encounter for closed fracture; K02.7 Dental root caries; F17.210 Nicotine dependence, cigarettes, uncomplicated
CPT/HCPCS: 99282

== ENCOUNTER 2019-04-03 14:27 | Outpatient (CLI) ==
--- NOTE | 2019-04-03 14:55 | DI ---
EXAM: Cervical spine three view HISTORY: Cervical radiculopathy COMPARISON: None TECHNIQUE: Three views cervical spine were performed FINDINGS: Straightening of the normal cervical lordosis with patient in a flexed position. Vertebra l bodies normal height. No fracture. No subluxation. Intervertebral disc spaces maintained. Carot id artery calcifications. Mild multilevel uncovertebral hypertrophy. IMPRESSION: 1. Mild chronic discogenic degenerative disease. 2. Straightening of the normal cervical lordosis with patient in a flexed position.
== END 2019-04-03 14:28 | disposition home or self-care (01) ==
LOC: RAD 14:27
PROVIDERS: ATTEND Nurse Practitioner Family
DX: M54.12 Radiculopathy, cervical region (principal)

== ENCOUNTER 2019-04-16 13:06 | Outpatient (CLI) ==
--- NOTE | 2019-04-16 23:49 | MRI ---
MRI of the cervical spine. HISTORY: Cervical radiculopathy. Bilateral hand numbness and tingling (right greater than left). COMPARISON: 08/04/2016 TECHNIQUE: Multiplanar, multisequence MRI protocol including sagittal T1-weighted, sagittal T2-weigh cassy, sagittal inversion recovery, coronal T2-weighted, axial T1-weighted and axial T2-weighted sequen julieth. FINDINGS: Vertebral alignment demonstrates maintenance of normal lordosis and of previously describe d minimal rightward curvature of the cervical and upper thoracic spine. Vertebral body height is wel l maintained. Marrow signal is unchanged and within normal limits for age. The intervertebral discs demonstrate modest desiccation with minimal progression in the mild disc space narrowing previously observed C5-6 and C6-7. The spinal cord is normal in caliber and signal. The caliber of the spinal canal appears developmentally small at the cervical level. The cervicomedullary junction demonstrate s no evidence of tonsillar herniation. The prevertebral and paraspinous soft tissues appear to be wi thin normal limits. The included structures in the posterior fossa appear unchanged. No apical lung mass, pneumonia or pleural effusion is identified. Segmental analysis: C2-3: There is no significant disc bulge at this level. The spinal canal appears normal in caliber a nd contour. The spinal cord is not significantly displaced or deformed. The nerve root axilla are n ot significantly narrowed. The neural foramina are not stenosed. C3-4: There is a modest disc bulge at this level. The AP diameter of the canal is reduced to about 8 mm. There is modest flattening of the ventral cord by disc impression. There is mild right greater than left foraminal stenosis due to facet and uncovertebral joint hypertrophy. C4-5: There is a posterior disc bulge with a small left paramedian protrusion and annular fissure imp ressing the ventral thecal sac at this level. The AP diameter in the midline is reduced to about 8 m m. The disc abuts the ventral cord causing mild flattening. The nerve root axilla are not significa ntly narrowed. There is mild to moderate right and mild left foraminal stenosis due to facet and unc overtebral joint hypertrophy. C5-6: There is a broad-based disc/osteophyte complex with a left posterolateral protrusion impressing the ventral thecal sac at this level. The AP diameter in the midline is reduced to about 8 mm. The protrusion abuts the ventrolateral cord on the left. The nerve root axilla are not significantly na rrowed. There is mild bilateral foraminal stenosis due to modest facet and uncovertebral joint hyper trophy. C6-7: There is a broad-based disc/osteophyte complex with a central protrusion impressing the ventral thecal sac at this level. There is an additional new right posterolateral protrusion indenting the thecal sac and narrowing the nerve root axilla. The AP diameter of the canal is reduced to about 7.5 mm. The disc indents the ventrolateral cord. The neural foramina are not stenosed. C7-T1: There is minimal disc bulge at this level. The AP diameter in the midline is approximately 9 mm. The spinal cord is not significantly displaced or deformed. The nerve root axilla are not signi ficantly narrowed. The neural foramina are not stenosed. IMPRESSION: 1. The current examination demonstrates the vertebral bodies and intervertebral discs to be generall y stable in appearance when compared to the prior examination with minimal progression in the disc sp mark narrowing previously observed C5-6 and C6-7. 2. There is multilevel central canal stenosis previously described as mild at C4-5, moderate at C5-6 and moderate at C6-7. In addition there is a new right posterolateral protrusion indenting the thec al sac and narrowing the nerve root axilla at C6-7 further asymmetrically reducing the AP diameter of the canal and indenting the cord. 3. There is mild right greater than left foraminal stenosis at C3-4, mild to moderate right and mild left foraminal stenosis at C4-5 and mild bilateral foraminal stenosis at C6-7. 4. Additional details are contained in the report.
== END 2019-04-16 13:07 | disposition home or self-care (01) ==
LOC: RAD 13:06
PROVIDERS: ATTEND Nurse Practitioner Family
DX: M54.12 Radiculopathy, cervical region (principal)